=== PATIENT | female | born 1965 | race Hispanic/Latino ===

== ENCOUNTER 2018-04-24 11:25 | Outpatient (CLI) | payer OTHER ==
--- NOTE | 2018-04-24 13:46 | ULT ---
RIGHT UPPER QUADRANT ULTRASOUND: INDICATIONS: Right upper quadrant pain. FINDINGS: There is a gallbladder filled with sludge and stones. There is a report of a sonographic Chacon sign . The common bile duct measures 5 mm. The gallbladder measures 1.5 mm. No pericholecystic fluid is evident. The pancreas is largely obscured. There is fatty infiltration of the liver. The right kidney measures 8.8 x 5.7 x 5.3 cm. No focal renal lesions or hydronephrosis is evident. IMPRESSION: 1. Gallbladder sludge with stones and report of a sonographic Chacon sign. Findings are equivocal f or acute calculus cholecystitis. No gallbladder wall thickening or pericholecystic fluid is evident. If clinically indicated, a HIDA scan may be helpful for further evaluation. 2. Fatty liver. POS: CLAUDIA
== END 2018-04-24 11:26 | disposition home or self-care (01) ==
LOC: BICULT 11:25
PROVIDERS: ATTEND Nurse Practitioner Family
DX: R10.11 Right upper quadrant pain (principal); K80.20 Calculus of gallbladder without cholecystitis without obstruction; K82.8 Other specified diseases of gallbladder; K76.0 Fatty (change of) liver, not elsewhere classified
CPT/HCPCS: 76705